=== PATIENT | male | born 1950 | race Caucasian/White ===

== ENCOUNTER 2023-03-09 06:19 | Day surgery (SDC) | payer OTHER, SELFPAY ==
[2023-03-01 08:25] VITALS: BMI 33.3
[2023-03-09] VITALS (11 sets, daily range): BP systolic 90–128; BP diastolic 44–81; PULSE 50–61; RESP 14–20; TEMP 35.9–36.8; O2SAT 94–99; BMI 33.3
--- NOTE | 2023-03-09 | DI.RAD.S_ITS ---
PROCEDURE: XR HIP W PEL IF DONE RT 2V INDICATIONS: RT ANTERIOR HIP TECHNIQUE: 2 intraoperative low resolution fluoroscopic spot films were obtained COMPARISON: None. FINDINGS: Low resolution spot films show sequential placement a right hip arthroplasty in appropriate position. IMPRESSION: Fluoroscopic guidance Approved by: Jerry Arguello M.D. on 03/09/2023 at 10:33
--- NOTE | 2023-03-09 06:00 | DI.RAD.S_ITS ---
PROCEDURE: XR HIP W PEL IF DONE RT 2V INDICATIONS: HERO TECHNIQUE: AP pelvis and lateral view of the right hip acquired. COMPARISON: [facility], [place], XR HIP W PEL IF DONE RT 2V, 03/09/2023, 9:09. FINDINGS: Bones: Patient is status post right hip arthroplasty, with hardware components in expected positions. The hip joint appears congruent. The visualized bony structures appear intact. Soft tissues: Overlying postoperative changes are noted. No suspicious soft tissue densities. IMPRESSION: Expected postoperative appearance of right total hip arthroplasty. Dictated by: Milan Post M.D. on 03/09/2023 at 12:16 Approved by: Milan Post M.D. on 03/09/2023 at 12:17
[2023-03-09] MEDS: ACETAMINOPHEN 325 MG TABLET 975 MG PO (06:50)
[2023-03-09] MEDS: MELOXICAM 7.5 MG TABLET PO (06:50)
[2023-03-09] MEDS: LACTATED RINGERS 1,000 ML 42 ML IV ×3 (06:50→11:06)
--- NOTE | 2023-03-09 07:35 | PM.PREOP ---
Pre-operative Note Interval Note History & Physical reviewed/Exam performed by Physician: Yes Changes to H&P: No
[2023-03-09] MEDS: CEFAZOLIN 2 GM/100 ML PREMIX 100 ML IV ×2 (08:05→16:48)
[2023-03-09] MEDS: TRANEXAMIC ACID 1,000 MG VIAL 1000 MG INJ ×2 (08:10→10:45)
--- NOTE | 2023-03-09 08:44 | SUR.OPER ---
Supine on padded [place] table with bilateral legs secured in padded positioning boots and suspended in positioning spars, operative leg in traction per surgeon. Head on one pillow. Both arms on padded arm rests @ < 90deg. Padded perineal post in place per surgeon.
[2023-03-09] MEDS: ROPIVACAINE/EPI/CLONIDINE/KET 50 ML SYRINGE INJ (08:55)
[2023-03-09] MEDS: SODIUM CHLORIDE IRRIG SOLUTION 250 ML, POVIDONE-IODINE SPONGE STICKS 1 APPLIC IRR (10:26)
--- NOTE | 2023-03-09 10:57 | PM.OP.1 ---
Operative Date/Time/Diagnoses Date of procedure: 03/09/23 Time of procedure: 08:45 Pre-op diagnosis: Right hip arthritis Post-op diagnosis: same Procedure & Clinicians Procedure: Right total hip arthroplasty Same procedure as scheduled: Yes Surgeon: Jerry Zamora Belling Machine Operator: Sadia Rae Anesthesia Type: General and Local Operative Notes Prosthetic devices, grafts, tissues, transplants, or devices: Implants: DePuy few Crawford 58 mm acetabular cup with 3 screws, 9 high offset Actis stem with 36 mm +5 ceramic head Estimated blood loss: 300 mL Intraoperative fluids: 2 L Procedure in detail: This 72-year-old male had significant activity limiting symptoms secondary to right hip arthritis. He was seen in clinic and treatment options were discussed at length. He elected to proceed with operative intervention. Risks and benefits were discussed in detail and informed consent was obtained. He was met in the preoperative holding area the day of surgery and the operative site was marked. Risks and benefits were again discussed with him his and the procedure was described in detail. He wished to proceed. He was taken back to the operating room and general anesthesia was induced as he had only been off of his blood thinners for approximately 48 hours. He was prepped and draped in the usual sterile fashion. A time-out procedure was performed. The correct operative site, patient, and procedure were identified. The patient's allergies and medical comorbidities were discussed. TXA and Ancef were administered. Are operating room staff included Sadia Rae, physician surgical dental assistant. Her assistance was necessary for room set up, soft tissue retraction, wound closure. Surgery would have required significantly more time had she not been available to assist. We began with a standard anterior approach to the hip. The TFL and rectus were dissected and the lateral circumflex vessels were coagulated. Cobra retractors were placed on the superior and inferior femoral neck. A capsulotomy was performed and the reflected head of rectus was taken down. Take stitches were placed in a soft tissue protector was placed in the wound. A 15 mm neck cut had been templated and this was measured and the neck was cut at that length. A napkin ring cut was used and this was removed as well as the head. Retractors were then placed in the acetabulum along the anterior wall, posterior wall, and inferiorly. The labrum was sharply resected. The pulvinar was resected with Bovie electrocautery. I reamed up to a 57 mm Reamer and felt that I had good fit at that size. I placed a cup but did not achieve satisfactory stability. I therefore reamed up to a 58 mm and deepened this. With this line to line reaming, I was able to get the cup in a position where it had better traction against the acetabulum. Fluoroscopically it was not in a satisfactory position so I utilized a cupped weaker to place him into a correct position. I placed 3 screws and checked them fluoroscopically. I found that 1 was excessively long so I downsized that by 5 mm. After verifying correct screw placement fluoroscopically I placed a 36 mm liner. I then moved to the femur. I began by performing a lateral capsular release with the hip in neutral extension. The hip was then extended and I found that a conjoined tendon release was necessary to achieve satisfactory femoral mobility to allow for broaching. He had been templated for a size 7 broach but I was able to broach up to a size 9. Fluoroscopically a size 9 broach with a standard offset stem and a +5 head was long but had inadequate offset. The femoral stem sizing was appropriate on an AP hip fluoroscopic image. I therefore placed a size 9 high offset intending to increase our offset. I placed a ceramic + 1.5 mm head and impacted that onto the trunnion. After reduction of those components I unfortunately found that we had shortened more than I desired and the hip was unstable with a 45 degree drop test. I therefore removed the ceramic +1.5 mm head and trialed using a +5 mm head. This appeared to have more appropriate length and was stable with a 45 degree drop test. I therefore placed a new +5 mm 36 mm head onto a clean dry trunnion. This was again stable with a 45 degree drop test. The wound was copiously irrigated with Betadine followed by a soft tissue lavage. A local anesthetic mixture of ropivacaine epinephrine clonidine and Toradol was placed throughout the wound. The wound was closed using a combination of Vicryl, Stratafix, and Monocryl. Dermabond was applied and a soft dressing was applied. Post-operative Plan for aftercare: Weightbearing as tolerated Postoperative films to be obtained in PACU Mobilize with physical therapy Anticipate discharge home Pradaxa DVT prophylaxis and his normal dose should begin on Monday morning Follow-up with our clinic at 2 weeks postoperatively for wound check
[2023-03-09] MEDS: LACTATED RINGERS 1,000 ML 100 ML IV (11:35)
[2023-03-09] MEDS: HYDROCODONE/ACET 5/325 TABLET 1 TAB PO (14:14)
--- NOTE | 2023-03-09 15:44 | PT.IIE ---
Current Diagnoses Unilateral primary osteoarthritis, right hip (03/09/23) Surgery Performed Operation Date: 03/09/23 07:45 Actual Procedures p Total Hip Arthroplasty/Anterior Approach(Right) - Jerry Zamora MD Surgical History (Last Updated 03/01/23 @ 09:22 by Tova Calero RN) H/O right wrist surgery H/O transurethral resection of prostate H/O vasectomy (~1978) Hx of arthroscopy of left knee Hx of bilateral cataract extraction Hx of eye surgery Hx of tonsillectomy Medical History (Last Updated 03/01/23 @ 09:30 by Tova Calero RN) Alcoholism in recovery (1972) Atrial fibrillation (07/10/20) Wylie's esophagus without dysplasia BPH (benign prostatic hyperplasia) Diabetes GERD (gastroesophageal reflux disease) Glaucoma History of colon polyps History of COVID-19 (~01/23/23) HLD (hyperlipidemia) HTN (hypertension) Leukocytosis Osteoarthritis Pacemaker (03/03/22) PVC's (premature ventricular contractions) Skin cancer Tachy-bertin syndrome Physical Therapy Inpatient Evaluation/Re-Eval M1 PT/OT-IP Prior Functional Status Start: 03/09/23 15:51 Freq: NEEDED Status: Active Protocol: Document 03/09/23 15:51 AB (Rec: 03/09/23 16:16 AB [id number]) Medical Review Prior Functional Status Medical History Reviewed Yes Communication Pt able to communicate all needs. Mobility and Gait IND with all Activities of Daily Living and IADL's IND with ADLs and IADLs Social History Household Members spouse Living Arrangements House Number of Floors (Floors) Two Floors Number of Stairs To Enter/Railing? no JOHN Home Environment Standard Height Toilet,Tub/ Shower Home Equipment Front Wheel Walker,Straight Cane,Raised Toilet Seat Without Armrests,Tub Transfer Bench,Hand Held Shower,Long Handled Shoe Horn,Station Mechanic Helper,Grab Bars In Shower Additional Social History Comment Pt's spouse can assist 19/12 as needed. Pt lives in split level home with 14 steps to bedroom on second floor (7 steps, landing, 7 steps; left hand rail). However, can stay of main level if needed. M2 PT-IP Current Condition Start: 03/09/23 15:51 Freq: NEEDED Status: Active Protocol: Document 03/09/23 15:51 AB (Rec: 03/09/23 16:16 AB [id number]) Physical Therapy Current Condition Current Condition Evaluation Date 03/09/23 Treatment Diagnosis s/p R anterior HERO Onset Date 03/09/23 M3 PT-IP Subjective Start: 03/09/23 15:51 Freq: NEEDED Status: Active Protocol: Document 03/09/23 15:51 AB (Rec: 03/09/23 16:16 AB [id number]) Subjective Physical Therapy Visit Type Type Initial Evaluation Visit Start Time 15:00 Visit Stop Time 15:44 Total Visit Minutes 44 Physical Therapy Visit Comments Patient Comments Pt reports he does not have any pain and is agreeable to PT evaluation. Therapy Pain Assessment Pain When Pain Assessed During Mobility Pain Present Pain Present Denied Pain M4 PT-IP Mobility and Gait Start: 03/09/23 15:51 Freq: NEEDED Status: Active Protocol: Document 03/09/23 15:51 AB (Rec: 03/09/23 16:16 AB [id number]) PT-Bed Mobility Assessment Rolling Type of Rolling Bilateral Level of Assist Independent Supine to Sit Supine to Sit Independent Sit to Supine Sit to Supine Independent Scooting Scooting to Edge of Bed Independent PT-Transfer Assessment Sit to and From Stand Sit to and from Stand Standby Assistance,Use of Upper Extremities Equipment Transfer Assistive Device Gait Belt,Front Wheeled Walker Transfers Transfer Destination Bed Transfer Technique Stand Step Pivot Transfer Ability Level of Assist Standby Assistance,Use of Upper Extremities Comments Mobility Comments Pt desaturates to below 88% on RA while at rest and conversing with PT, therefore RN recommended pt stay on 2L of O2, especially with mobility. Pt's BP in supine is 104/61 mmHg. The pt was able to perform bed mobility with independence. Once sitting at EOB, the pt's BP improved to 116/65 and pt denies any symptoms. Pt is able to perform STS with FWW and SBA, however BP dropped to 100/75. The pt denied symptoms of lightheadedness and was able to remain standing for a few minutes to retake BP in standing, which improved to 107/65. The pt then ambulated and completed stairs as below. Upon returning to room, the pt required verbal cues for safety to sit in bed, but was able to perform bed mobility with independence. At end of session all needs were met, call light was placed within reach, bed alarm was set and is at bedside. Gait Assessment Gait Gait Assistance Required: Standby Assistance Distance (Feet) 200 Assistive Devices Assistive Device Gait Belt,Front Wheeled Walker Orthotic/Prosthetic Devices or Brace: No Gait Deviations General Gait Pattern Decreased Stride Length, Decreased Feet Clearance Factors Limiting Gait Function Factors Limiting Gait Function Decreased Strength,Limited Range of Motion Comments Gait Comments Gait deviations are consistent with surgical procedure. No imbalance or instability noted while ambulating, and pt demonstrated proper use of FWW and good safety awareness while ambulating. Stair Climbing Assessment Evaluation Level of Assist On Stairs Standby Assistance Devices Stair Climbing Assistive Devices Left Railing,Right Railing Technique/Endurance Stair Climbing Direction Ascend and Descend Stair Climbing Technique Step Over Step,Step to Step Number of Steps Climbed 15 Query Text: Stair Climbing Set # Repetitions (reps) 1 Comments Stair Climbing Comments Pt was able to ascend/descend 15 steps with bilateral hand rails and SBA and without rest break needed. He demonstrated both step to step technique and reciprocal pattern. No instability or LOB noted, though pt reports feeling weaker on RLE compared to LLE. PT-Balance Assessment Sitting Balance and Reactions Static Sitting Balance Ability Normal Dynamic Sitting Balance Ability Normal Standing Balance and Reactions Static Standing Balance Ability Normal Dynamic Standing Balance Ability Good Device Used FWW M5 PT-IP Objective Assessments Start: 03/09/23 15:51 Freq: NEEDED Status: Active Protocol: Document 03/09/23 15:51 AB (Rec: 03/09/23 16:16 AB [id number]) Orientation Orientation/Cognition Level of Alertness Alert Orientation Name,Age,Birthday,Month,Date, Year,Day of Week,Place, Situation Language Function Ability No Deficits Noted Safety Awareness Understands Safety Issues Memory Description No Deficits Noted Gross Range of Motion Upper Extremity ROM Assessment Within Functional Limits Lower Extremity ROM Assessment Right Impaired Strength Upper Extremity Strength Assessment Within Functional Limits Lower Extremity Strength Assessment Right Impaired M6 PT-IP Treatment Start: 03/09/23 15:51 Freq: NEEDED Status: Active Protocol: Document 03/09/23 15:51 AB (Rec: 03/09/23 16:16 AB [id number]) Physical Therapy Treatment Education Education Provided Precautions,Weight Bearing Status,Post-Op Packet,Safety Brace Education Patient,Caregiver M7 PT-IP Assessment and Plan Start: 03/09/23 15:51 Freq: NEEDED Status: Active Protocol: Document 03/09/23 15:51 AB (Rec: 03/09/23 16:16 AB [id number]) PT Summary Assessment and Plan Potential Rehabilitation Potential Excellent Status of Condition at Evaluation Stable Summary Impairments Pain,ROM,Strength,Balance,Bed Mobility,Transfers,Gait, Activity Tolerance Assessment Summary Tres Santiago is a 72 year old male patient who is s/p right anterior HERO performed on 05/20. The pt has deficits consistent with this surgical procedure including weakness, ROM deficits, and gait deviations. Currently, the pt is independent with bed mobility but requires SBA for STS, transfers ambulation and stairs. He is able to ambulate 200ft with FWW and ascend/ descend 15 steps with bilateral hand rails. Based on his current level of function , the pt demonstrates he is safe to discharge to home with assistance. Outpatient PT is highly recommended to improve his post operative outcomes. Goals Bed Mobility Goal Independent Transfer Goal Independent Gait Goal Independent Gait Distance 300 Other Goals Pt to be able to transfer with LRAD or without AD independently to show improved ability to perform functional mobility. Pt to ambulate 500ft with LRAD or without AD independently in order to ambulate community distances. Days to Meet Goals 5 Frequency of Treatment Frequency Of Treatment Twice a Day Treatment Plan Physical Therapy Treatment Plan Bed Mobility Training,Transfer Training,Gait Training, Therapeutic Exercise,Balance Retraining,Post Op Education, Discharge Planning,Hot or Cold Pack,Neuromuscular Re-ed, Coordination Retraining,Manual Therapy Other Recommendations and Next Treatment Continue gait and stair Focus training as needed. Possibly progress to SPC if indicated. Precautions Anterior Hip Precautions No Hip Extension,No Hip External Rotation Weight Bearing Status Weight Bearing Status Weight Bear as Tolerated Recommendations To Nursing Amount of Assist Needed Standby Assistance Discharge Recommendations PT Discharge Recommendations Home with Assistance, Outpatient PT Transportation Needs at Discharge Private Vehicle
--- NOTE | 2023-03-09 17:58 | PC.NURSE ---
Pt arrived from PACU A/O IVF infusing as per MD orders Left hip aquacell dsg CDI Amb w/ PT earlier Satisfactory post op course. Call light w/in reach, bed alarm on for pt safety. Continue w/plan of care.
--- NOTE | 2023-03-09 19:41 | PC.NURSE ---
Patient discharged at 19:41 transferred to car by wheelchair. Spouse present. Admission orders reviewed with patient.
== END 2023-03-09 19:41 | disposition home or self-care (01) ==
LOC: OR 06:25 → AC 09:48
PROVIDERS: PCP Student in an Organized Health Care Education/Training Program; Referring Provider Student in an Organized Health Care Education/Training Program; Visit Provider Orthopaedic Surgery Adult Reconstructive Orthopaedic Surgery
PROC: (CPT 27130; principal; 2023-03-09 07:45)
DX: M16.11 Unilateral primary osteoarthritis, right hip (principal)
CPT/HCPCS: 27130; 73502; 76000; 97161; 97535; C1776; J0690; J1100; J1170; J2405; J2704; J3010

== ENCOUNTER 2023-10-11 07:18 | Day surgery (SDC) | payer OTHER, SELFPAY ==
[2023-03-09 12:09] VITALS: BMI 33.3
[2023-10-04 12:44] VITALS: BMI 34.2
[2023-10-11] VITALS (12 sets, daily range): BP systolic 98–146; BP diastolic 33–80; PULSE 47–57; RESP 11–18; TEMP 36–36.8; O2SAT 95–99; BMI 31.4
--- NOTE | 2023-10-11 | DI.RAD.S_ITS ---
PROCEDURE: [id number] W PEL IF PERFORMED INDICATIONS: left anterior hip TECHNIQUE: 6 intraoperative fluoroscopic spot films COMPARISON: [facility], [place], XR HIP W PEL IF DONE RT 2V, 03/09/2023, 11:16. FINDINGS: Six intraoperative fluoroscopic spot films show sequential placement of total left hip prosthesis IMPRESSION: Approved by: Jerry Arguello M.D. on 10/11/2023 at 18:31
--- NOTE | 2023-10-11 06:00 | DI.RAD.S_ITS ---
PROCEDURE: XR HIP W PEL IF DONE LT 2V INDICATIONS: HERO TECHNIQUE: AP pelvis and lateral view of the hip acquired. COMPARISON: [facility], [place], XR HIP W PEL IF DONE RT 2V, 03/09/2023, 11:16. FINDINGS: Bones: Patient is status post bilateral hip arthroplasty, with hardware components in expected positions. The hip joint appears congruent. The visualized bony structures appear intact. Soft tissues: Overlying postoperative changes are noted. No suspicious soft tissue densities. IMPRESSION: Expected post-operative appearance of a hip arthroplasty. Dictated by: Isaias Catalan M.D. on 10/11/2023 at 12:11 Approved by: Isaias Catalan M.D. on 10/11/2023 at 12:11
[2023-10-11] MEDS: LACTATED RINGERS 1,000 ML 42 ML IV ×3 (08:06→11:04)
[2023-10-11] MEDS: MELOXICAM 7.5 MG TABLET PO (08:09)
[2023-10-11] MEDS: ACETAMINOPHEN 325 MG TABLET 975 MG PO (08:09)
--- NOTE | 2023-10-11 08:38 | PM.PREOP ---
Pre-operative Note Interval Note History & Physical reviewed/Exam performed by Physician: Yes Changes to H&P: No
[2023-10-11] MEDS: TRANEXAMIC ACID 1,000 MG VIAL 1000 MG INJ (09:00)
[2023-10-11] MEDS: CEFAZOLIN 2 GM/100 ML PREMIX 100 ML IV ×2 (09:00→17:17)
--- NOTE | 2023-10-11 09:34 | SUR.OPER ---
Supine on padded [place] table with bilateral legs secured in padded positioning boots and suspended in positioning spars, operative leg in traction per surgeon. Head on one pillow. BILATERAL ARMS secured on FOAM padded armboard <90 degrees abduction. Padded perineal post in place per surgeon. CONFIRMED BY DR. CREWS.
[2023-10-11] MEDS: THROMBIN (RECOMBINANT) 5,000 UNIT VIAL 5000 UNIT TOP (09:48)
--- NOTE | 2023-10-11 11:00 | P.OP_ITS ---
Operative Date/Time/Diagnoses Date of procedure: 10/11/23 Pre-op diagnosis: Left hip osteoarthritis Post-op diagnosis: same Procedure & Clinicians Procedure: Left total hip arthroplasty Same procedure as scheduled: Yes Surgeon: Jerry Zamora Dyeing Machine Back Tender: Estela Hernandez Anesthesia Type: General, Spinal and Local Operative Notes Estimated Blood Loss (mL): 1,000 Procedure in detail: Left Uncemented Direct Anterior Total Hip Arthroplasty: Implants: Left Depuy Total Hip Arthroplasty: * Depuy Bryan Gription size 62 cup? * Depuy Actis femoral stem size 9 high offset? * 36 mm +5 ceramic femoral head? Procedure Summary: This 73-year-old male patient had previously undergone a right total hip arthroplasty by myself. He returned reporting that he would recovered well from that side but was limited by pain in his left hip which had similar degeneration. I repeated labs prior to scheduling him for a left total hip arthroplasty and found that his diabetes control had worsened between the procedures so it was delayed until his hemoglobin A1c could be improved which he was eventually able to do. Intraoperatively I did encounter significantly more blood loss than the typical total hip. While dissecting his medial capsule working down towards the lesser trochanter using a Sandhu, I noted brisk bleeding from the posterior aspect of the proximal femur. I was unable to identify the area of the bleeding because it was obscured by the femoral neck so I placed thrombin and a lap in the area of the bleeding to attempt to gain hemostasis and then made my femoral neck cut. After removing the femoral neck and head I was able to find the source of the bleeding, which was inferior to the acetabulum likely in the area of the obturator artery. I brought up a werewolf bipolar electrocautery device and was able at that point in time to control the bleeding. At that point in the case the suction canister indicated that there was 850 mL of fluid in the canister and no irrigation had been utilized so this was likely an accurate estimate of blood loss at that point in the case. There was minimal bleeding the remainder of the case once hemostasis was achieved in that area. My initial reaming appeared on fluoroscopy to have a slightly lower hip center than the contralateral side so I attempted to utilize a +1.5 head where as I had used a +5 head on the other side. I had good stability with maximum external rotation with a +1.5 head trial however the hip did dislocate with a 45 degree drop test so I upsized to a +5 head to match the other side which resolved the instability. While utilizing a long metal bar to control for fluoroscopic distortion across the trans ischial line, the leg lengths were grossly equal. These implants were then placed. Procedure in Detail: This patient was seen preoperatively and evaluated for hip pain which was refractory to numerous nonoperative treatment modalities. Their hip pain correlated with radiographic changes demonstrating significant degeneration in the hip joint. The risks and benefits of continued nonoperative management versus operative management were discussed at length and all of the patient?s questions were answered. Additional educational materials providing further details beyond our discussion in clinic were provided via a publicly available patient education video which included the incidence of medical complications associated with total hip arthroplasty, reasons for revision following total hip arthroplasty, and patient satisfaction rates following total hip arthroplasty. That video can be accessed at [email or web address] . With this understanding of the risks inherent to the procedure, the patient elected to move forward with operative management. Following preoperative optimization, the patient was scheduled for surgery. The patient was met in the preoperative holding area the day of the procedure and all questions were answered. The patient?s nares were swabbed with betadine in order to decolonize them from MRSA. Informed consent was signed and the operative limb was marked with indelible ink.? The patient was brought back to the operating room where anesthesia was induced. The patient was transferred to the Morenci table and all bony prominences were padded. The operative site was prepped and draped in the usual sterile fashion. Prior to incision, tranexamic acid and cefazolin were administered. Operative templating images were displayed demonstrating the anticipated implant sizes and correct operative extremity. A timeout procedure was performed verifying the patient?s identity, medical comorbidities, allergies, relevant medications, anesthesia type and the surgical plan. All present were in agreement. The assistance of a physician aquatics assistant department head was required for positioning, room setup, soft tissue retraction and wound closure. Without this assistance, the procedure would have been significantly more challenging and time consuming.?? A direct anterior approach to the hip was utilized. This was performed with a longitudinal incision through a Heuter interval. The incision was planned 2 cm distal and 2 cm lateral to the ASIS extending towards the lateral patella, in line with the muscle body of the TFL. Following incision, the subcutaneous tissue was dissected while taking care to avoid injury to the lateral femoral cutaneous nerve. The fascia overlying the TFL was identified by dissecting off the overlying fat and identifying perforating vessels to the TFL. The TFL fascia was incised and dissected away from the medial border of the TFL. A cobra retractor was placed over the superior femoral neck between the abductors and the hip capsule and used to reflect the TFL laterally. A [place] self-retainer was then placed in the distal aspect of the wound between the TFL and the rectus femoris. This was tensioned to open up the direct anterior interval and the lateral circumflex vessels were identified and coagulated using electrocautery. The floor of the TFL fascia was incised, exposing the pericapsular fat overlying the hip capsule. A second cobra retractor was placed on the inferior femoral neck. A double-bent soft tissue retractor was placed on the anterior wall of the acetabulum and used to tension the reflected head of rectus femoris, which was then released in order to limit soft tissue tension. A capsulotomy was made in the midline of the anterior hip capsule in line with the femoral neck ending at the vastus tubercle. The double-bent retractor was removed in order to limit the amount of time that a soft tissue retractor remained on the anterior wall and protect the femoral nerve. Tag stitches were placed in the superior and inferior leaflets of the hip capsule. An Ernie soft tissue retractor was introduced over the tag stitches and tensioned in the interval between the rectus femoris and the TFL in order to retract and protect those muscles. The cobra retractors were replaced intracapsularly, with one over the superior neck in the pocket created by the base of the greater trochanter and the other on the femoral head. The capsulotomy was extended laterally to the base of the greater trochanter and medially to the lesser trochanter. This required externally rotating the hip. Once the lesser trochanter had been identified, a neck cut was planned according to measurements from preoperative templating. A ruler was cut at the length measured between the superior aspect of the lesser trochanter and the collar of the prosthesis. This line was extended towards the inferior aspect of the lateral cobra retractor to plan a cut which would leave minimal residual femoral neck laterally. The neck was cut at 60 degrees of external rotation along that line. A second cut was performed to remove a large napkin ring and facilitate head extraction. The napkin ring cut and femoral head were removed.?? A broad anterior wall retractor was placed between the labrum and the anterior capsule so that the anterior capsule would prevent capturing and pinching the femoral nerve anteriorly. An additional retractor was placed on the posterior wall. External rotation and traction were applied through the Morenci table so that the cut surface of the femoral neck would not restrict access to the acetabulum. The labrum was excised sharply and the pulvinar was excised with electrocautery to limit bleeding from branches of the obturator artery. Acetabular reamers were selected based on preoperative templating and measurements of the excised femoral head. These were introduced into the acetabulum. Fluoroscopy was utilized to replicate a standing AP pelvis radiograph by centering over the pelvis, rotating until there was appropriate symmetry between the obturator foramen, and introducing caudal tilt to match the position of the pubic symphysis relative to the sacrococcygeal junction according to the patient?s anatomy. Fluoroscopy was utilized to ensure appropriate reaming depth. Once satisfied with the reaming depth corresponding to the preoperative template and the pinch fit between the columns, an appropriate sized acetabular cup was selected which would provide 1 mm of press-fit. This cup was introduced and manipulated until appropriate abduction and anteversion angles were obtained with careful attention to appropriate abduction and anteversion angles as evaluated by the position of the cup relative to the anterior and posterior lopez of the acetabulum and the AP fluoroscopy which recreated the patient?s standing radiograph. The cup was impacted into place. Two screws were placed to provide additional fixation. Peripheral osteophytes were removed. The acetabular liner was then placed with care to ensure locking of the locking mechanism.? Attention was then turned to the femur. All retractors were removed, traction was released, a retractor was placed in the interval between the hip capsule and the gluteus minimus, and the hip was externally rotated to 90 degrees. Traction was applied through the Morenci table to tension the lateral capsule and this was released using electrocautery. Traction was released and a Morenci hook was placed posteriorly around the proximal femur at the level of the vastus ridge. The table height was lowered in order to restrict the tension on the anterior structures during hip hyperextension to limit the risk of femoral nerve palsy. With traction off and the hip at 90 degrees of external rotation, the hip was hyperextended and adducted while manually elevating the femur away from the acetabulum with the Morenci hook to ensure it would not be caught behind the greater trochanter. An asymmetric retractor was placed over the calcar and a broad double-pronged retractor was placed over the greater trochanter. The tag stitch capturing the lateral leaflet of the capsule was moved to the medial side, leaving the conjoined and piriformis tendons isolated in the face of the greater trochanter. The hip was externally rotated and elevated. A release of the conjoined tendon was necessary in order to obtain adequate exposure for broaching. The canal was opened with an opening broach and a rasp was used to remove cancellous bone. A rongeur was used to remove the residual lateral bone at the base of the greater trochanter to avoid placing the stem in varus. The femur was then broached to the appropriate sized stem yielding good rotational fit and fill of the canal as well as appropriate version of the stem trial. Neck and head trials were placed, all retractors were removed and the hip was returned to neutral abduction and extension. I then reduced the hip. I initially reduced the hip with a +1.5 head but noted instability with a 45 degree drop test so I upsized to a +5 head. An AP pelvis fluoroscopic image matching the preoperative standing radiograph was obtained with both lesser trochanters visible and both hips in 40 degrees of external rotation. This dem onstrated appropriate leg length and offset. An AP hip fluoroscopic image was obtained with the hip in neutral rotation which demonstrated good canal fill. Hip stability was evaluated with maximum external rotation and a 45 degree drop test which demonstrated no instability. The hip was dislocated and I returned to the broaching position. The definitive stem was placed and the trunnion was cleaned and dried. I placed a ceramic head onto the trunnion and impacted it into place on the Ramirez taper.?? All retractors were removed and the hip was reduced. A dilute mixture of betadine and peroxide was used to bathe the soft tissues during final fluoroscopic assessment. Appropriate component positioning was confirmed on an AP pelvis radiograph with the operative and nonoperative legs in 40 degrees of external rotation, evaluating leg length and offset. Appropriate stem fill was evaluated on an AP hip radiograph with the operative leg in neutral rotation. No fractures were identified on these radiographs. Stability was satisfactory with a 90 degree external rotation test as well as a 45 degree drop test. The hip was copiously irrigated with pulse lavage. The capsule was closed with absorbable interrupted suture. The TFL fascia was closed with barbed suture while carefully protecting the lateral femoral cutaneous nerve from entrapment. A mixture of Ropivacaine, Epinephrine, Clonidine and Toradol was infiltrated throughout the soft tissues. The skin was closed with 2-0 and 3-0 sutures. Surgical glue was applied and a soft dressing was placed.??The sponge, instrument and needle counts were reported as being correct at the end of the case.??No obvious complications occurred. The patient was transferred from the Morenci table back to a stretcher. The patient emerged from anesthesia without difficulty and was taken to the PACU in a stable condition.? Plan for aftercare: * Anterior hip precautions * Weightbearing as tolerated * Given the high blood loss of the procedure, we will administer albumin. I will get a CBC in the PACU. We will have the patient typed and screened. * Pradaxa for DVT prophylaxis to begin on postoperative day 2 * Multimodal pain regimen with no IV opioids ordered * I had initially planned to discharge the patient today however given his high blood loss, if he experiences orthostatic hypotension we may keep him overnight for monitoring * Follow up at [facility] in 2 weeks * Detailed postoperative instructions available at [email or web address]
[2023-10-11 11:46] LABS: Hematocrit 37.2 % (41-53); Hemoglobin 12.8 g/dL (13.5-17.5)
[2023-10-11] MEDS: ACETAMINOPHEN 325 MG TABLET 650 MG PO (13:35)
--- NOTE | 2023-10-11 15:40 | PT.IIE ---
Current Diagnoses Unilateral primary osteoarthritis, left hip (10/11/23) Surgery Performed Operation Date: 10/11/23 08:45 Actual Procedures p LEFT Total Hip Arthroplasty/Anterior Approach(Left) - Jerry Zamora MD Surgical History (Last Updated 10/04/23 @ 13:02 by Tova Calero, RN) H/O right wrist surgery H/O transurethral resection of prostate H/O vasectomy (~1978) 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) Hx of arthroscopy of left knee Hx of bilateral cataract extraction Hx of eye surgery Hx of tonsillectomy Medical History (Last Updated 03/01/23 @ 09:30 by Tova Calero RN) Alcoholism in recovery (1972) Atrial fibrillation (07/10/20) Wylie's esophagus without dysplasia BPH (benign prostatic hyperplasia) Diabetes GERD (gastroesophageal reflux disease) Glaucoma History of colon polyps History of COVID-19 (~01/23/23) HLD (hyperlipidemia) HTN (hypertension) Leukocytosis Osteoarthritis Pacemaker (03/03/22) PVC's (premature ventricular contractions) Skin cancer Tachy-bertin syndrome Physical Therapy Inpatient Evaluation/Re-Eval M1 PT/OT-IP Prior Functional Status Start: 10/11/23 17:31 Freq: NEEDED Status: Active Protocol: Document 10/11/23 15:40 AB (Rec: 10/11/23 17:49 AB [id number]) Medical Review Prior Functional Status Medical History Reviewed Yes Communication able to make needs known Mobility and Gait pt stated that he was indpendent with all mobilities and ambulation without AD Social History Household Members spouse Living Arrangements House Number of Floors (Floors) Two Floors Number of Stairs To Enter/Railing? pt lives on a split level house: 7 + landing + 7 steps L rail ascending to get to bedroom level no steps to enter the house Home Environment Standard Height Toilet,Tub/ Shower Home Equipment Front Wheel Walker,Straight Cane,Raised Toilet Seat Without Armrests,Tub Transfer Bench,Hand Held Shower,Grab Bars In Shower Additional Social History Comment pt may stay on main level of the house if needed but only a recliner to sleep on that level M2 PT-IP Current Condition Start: 10/11/23 17:31 Freq: NEEDED Status: Active Protocol: Document 10/11/23 15:40 AB (Rec: 05/15/24 17:49 AB [id number]) Physical Therapy Current Condition Current Condition Evaluation Date 10/11/23 Treatment Diagnosis s/p L HERO anterior; difficulty in walking Onset Date 10/11/23 M3 PT-IP Subjective Start: 10/11/23 17:31 Freq: NEEDED Status: Active Protocol: Document 10/11/23 15:40 AB (Rec: 10/11/23 17:49 AB [id number]) Subjective Physical Therapy Visit Type Type Initial Evaluation Visit Start Time 15:40 Visit Stop Time 17:05 Number of STEAM BLOCKER Visits 0 Physical Therapy Visit Comments Patient Comments agreeable to do PT; pt wants to go home Therapy Pain Assessment Pain When Pain Assessed At Rest Pain Present Pain Present Pain Reported Location Left Hip Intensity 3 Scale Used Numeric (0 - 10) Pain Behaviors Guarding,Holding Area Pain Management Techniques Apply Cold,Distraction, Elevation,Modification of Treatment,Re-positioning, Timing of Activity with Medications M4 PT-IP Mobility and Gait Start: 10/11/23 17:31 Freq: NEEDED Status: Active Protocol: Document 10/11/23 15:40 AB (Rec: 10/11/23 17:49 [id number]) PT-Bed Mobility Assessment Supine to Sit Supine to Sit Standby Assistance PT-Transfer Assessment Sit to and From Stand Sit to and from Stand Contact Guard Assistance,1 Person Assistance,Use of Upper Extremities Equipment Transfer Assistive Device Gait Belt,Front Wheeled Walker Orthotic/Prosthetic Devices or Brace: No Transfers Transfer Destination Chair Transfer Technique ambulated Transfer Ability Level of Assist Contact Guard Assistance,Use of Upper Extremities Comments Mobility Comments pt supine in bed and agreeable to do PT. Spouse in room with pt. obtained PLOF and home set up from pt. post-op folder provided to pt and reviewed contents. educated pt and spouse regarding L hip anterior precautions. BP in supine: 111/54. pt completed supine to sit SBA. able to sit on EOB SBA. BP in supine: 120/39. pt was able to sit on EOB for 2 more mntues and BP checked: 112/58. pt without c/o dizziness/ lightheadedness. pt completed sit to stand from EOB CGA and cues for techniques and safety. pt ambulated to the chair using FWW CGA ~ 15 ft. BP after ambulation: 109/60. caregiver training conducted. educated spouse on how to use safety belt and how to assist pt. spouse was able to put the safety belt on pt and assisted pt with sit to stand, ambulation in the hallway using FWW CGA. educated pt and spouse regarding car transfers. stair climbing training. PT educated and demonstrated to pt and spouse on how to do stairs. durring attempt to do stair training, pt found to have uncotrolled voiding. assisted pt back to the room. pt stated that he does not feel like he has to void. assisted with brief management . assistted pt back to the stairs. pt completed up/down steps holding on to L rail with B hands CGA to min A and cues for safety. pt completed steps x 3 sets. assisted pt back to his room. pt ambulated from w/c to chair using fWW with spouse assisting CGA. positioned pt on the chair. pt and spouse without further concerns. BP at end of PT session: 109/ 60. nurse informed Gait Assessment Gait Gait Assistance Required: Contact Guard Assist Distance (Feet) 100 Able to Maintain Weight Bearing Status Yes During Gait Assistive Devices Assistive Device Gait Belt,Front Wheeled Walker Orthotic/Prosthetic Devices or Brace: No Gait Deviations General Gait Pattern Decreased Feet Clearance,Step- to Gait Factors Limiting Gait Function Factors Limiting Gait Function Decreased Activity Tolerance, Decreased Strength,Difficulty Following Directions,Limited Range of Motion,Pain,Poor Balance,Poor Safety Awareness Stair Climbing Assessment Evaluation Level of Assist On Stairs Contact Guard Assistance, Minimal Assistance Devices Stair Climbing Assistive Devices Left Railing Technique/Endurance Stair Climbing Direction Ascend and Descend Stair Climbing Technique Step to Step Number of Steps Climbed 3 Query Text: Stair Climbing Set # Repetitions (reps) 3 PT-Balance Assessment Sitting Balance and Reactions Static Sitting Balance Ability Normal Dynamic Sitting Balance Ability Normal Standing Balance and Reactions Static Standing Balance Ability Good Dynamic Standing Balance Ability Fair Device Used FWW M5 PT-IP Objective Assessments Start: 10/11/23 17:31 Freq: NEEDED Status: Active Protocol: Document 10/11/23 15:40 AB (Rec: 10/11/23 17:49 AB [id number]) Orientation Orientation/Cognition Level of Alertness Alert Orientation Name,Age,Birthday,Month,Date, Year,Day of Week,Place, Situation Language Function Ability Hard of Hearing Safety Awareness Decreased Safety Awareness Memory Description Short Term Impaired Gross Range of Motion Lower Extremity ROM Assessment Within Functional Limits Strength Lower Extremity Strength Assessment Left Impaired Hip 3-/5 Knee 4-/5 Coordination Assessment Gross Coordination Gross Coordination WNL Sensation Assessment Sensation Sensation Description Numbness Comments Sensation Comments still has numbness on his buttocks per pt Muscle Tone Muscle Tone WNL Yes M6 PT-IP Treatment Start: 10/11/23 17:31 Freq: NEEDED Status: Active Protocol: Document 10/11/23 15:40 AB (Rec: 10/11/23 17:49 AB [id number]) Physical Therapy Treatment Education Education Provided Precautions,Weight Bearing Status,Post-Op Packet,Safety M7 PT-IP Assessment and Plan Start: 10/11/23 17:31 Freq: NEEDED Status: Active Protocol: Document 10/11/23 15:40 AB (Rec: 10/11/23 17:49 AB [id number]) PT Summary Assessment and Plan Potential Rehabilitation Potential Good Status of Condition at Evaluation Stable Summary Impairments Pain,ROM,Strength,Balance, Coordination,Sensation,Tone, Cognition,Bed Mobility, Transfers,Gait,Activity Tolerance Assessment Summary pt is a 73 y/o M s/p L HERO anterior approach POD 0. pt has L hip anterior precautions and is WBAT. pt requiring CGA with mobility using FWW. caregiver training conducted and spouse was able to assist pt safely with mobility. pt plans to go home with spouse to assist and has outpt PT set up. pt may go home when medically stable. Goals Bed Mobility Goal Independent Transfer Goal Independent,Front Wheeled Walker Gait Goal Independent,Front Wheel Walker Gait Distance 300 Other Goals up/down 15 steps L rail ascending mod I Days to Meet Goals 5 Frequency of Treatment Frequency Of Treatment Twice a Day Treatment Plan Physical Therapy Treatment Plan Bed Mobility Training,Transfer Training,Gait Training, Therapeutic Exercise,Balance Retraining,Post Op Education, Discharge Planning,Hot or Cold Pack,Neuromuscular Re-ed, Coordination Retraining,Manual Therapy Precautions Anterior Hip Precautions No Hip Extension,No Hip External Rotation Weight Bearing Status Weight Bearing Status Weight Bear as Tolerated Allowed Weight Bearing Amount (enter % LLE WBAT or #) (%) Recommendations To Nursing Amount of Assist Needed 1 Person Assist Discharge Recommendations PT Discharge Recommendations Home with Assistance, Outpatient PT Transportation Needs at Discharge Private Vehicle
[2023-10-11] MEDS: IBUPROFEN 600 MG TABLET PO (17:17)
--- NOTE | 2023-10-11 17:20 | OT.IP.EVAL ---
Current Diagnoses Unilateral primary osteoarthritis, left hip (10/11/23) Surgery Performed Operation Date: 10/11/23 08:45 Actual Procedures p LEFT Total Hip Arthroplasty/Anterior Approach(Left) - Jerry Zamora MD Past Medical History (Last Updated 03/01/23 @ 09:30 by Tova Calero, RN) Alcoholism in recovery (1972) Atrial fibrillation (07/10/20) Wylie's esophagus without dysplasia BPH (benign prostatic hyperplasia) Diabetes GERD (gastroesophageal reflux disease) Glaucoma History of colon polyps History of COVID-19 (~01/23/23) HLD (hyperlipidemia) HTN (hypertension) Leukocytosis Osteoarthritis Pacemaker (03/03/22) PVC's (premature ventricular contractions) Skin cancer Tachy-bertin syndrome Surgical History (Last Updated 10/04/23 @ 13:02 by Tova Calero RN) H/O right wrist surgery H/O transurethral resection of prostate H/O vasectomy (~1978) 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) Hx of arthroscopy of left knee Hx of bilateral cataract extraction Hx of eye surgery Hx of tonsillectomy Occupational Therapy Inpatient Evaluation/Re-Eval M2 OT-IP Current Condition Start: 10/11/23 17:19 Freq: Status: Active Protocol: Document 10/11/23 17:24 [facility] (Rec: 10/11/23 17:33 [facility] [id number]) Occupational Therapy Current Condition Current Condition Evaluation Date 10/11/23 Treatment Diagnosis S/P L HERO anterior approach Diagnosis Onset Date 10/11/23 Post Operative Precautions Anterior Hip Precautions No Hip Extension,No Hip External Rotation M3 OT- IP Subjective and Pain Start: 10/11/23 17:19 Freq: Status: Active Protocol: Document 10/11/23 17:24 [facility] (Rec: 10/11/23 17:33 [facility] [id number]) OT- Subjective Occupational Therapy Visit Type Type Initial Evaluation Visit Start Time 16:55 Visit Stop Time 17:20 Occupational Therapy Visit Comments Patient Comments Pt wanting to get dressed. Nursing calling the surgeon to see if pt could be discharged . Patient/Caregiver Goals To go home and play golf again . OT Pain Assessment Pain When Pain Assessed During Mobility Pain Present Pain Present Pain Reported M4 OT- IP ADL's Start: 10/11/23 17:19 Freq: Status: Active Protocol: Document 10/11/23 17:24 [facility] (Rec: 10/11/23 17:33 [facility] [id number]) OT PNS-Yckw-Gkhyyie General Evaluation Self-Feeding Ability Independent OT ADL-Grooming Comments OT Grooming Comments Not performed. OT ADL-Oral Care Comments Oral Care Comments Not performed. OT ADL-Dressing General Eval Lower Body Dressing Ability Maximum Assistance Areas Needing Assistance Socks Comments OT Dressing Comments Able to have pt practice use of fuel injection servicer and sock aid for LB dressing needs. Pt states will order a sock aid. OT ADL-Toileting Comments OT Toileting Comments Educated pt to be mindful of his left hip positioning needs while wiping. OT ADL-Bathing Comments OT Bathing Comments No performed. M5 OT- IP IADL's Start: 10/11/23 17:19 Freq: Status: Active Protocol: Document 10/11/23 17:24 [facility] (Rec: 10/11/23 17:33 [facility] [id number]) OT-Instrumental Activities of Daily Living Deficits IADL Deficits Identified Deficits Home Safety Awareness Awareness of Need for Assistance at Home Good Awareness Ability to Problem Solve Emergency Able to Problem Solve Situations Meal Preparation Meal Preparation Caregiver Provides Assist Product Evangelist Product Evangelist Caregiver Provides Assist M6 OT- IP Functional Cognition Start: 10/11/23 17:19 Freq: Status: Active Protocol: Document 10/11/23 17:24 [facility] (Rec: 10/11/23 17:33 [facility] [id number]) Cognitive Factors Limiting Selfcare Function Cognitive Ability Level of Alertness Alert Patient Orientation Name,Age,Birthday,Month,Date, Year,Day of Week,Place, Situation Attention Span Ability Capable of Focused Attention, Capable of Sustained Attention Cognitive Comments Cognitive Assessment Comments Intact. M7 OT- IP Mobility and Balance Start: 10/11/23 17:19 Freq: Status: Active Protocol: Document 10/11/23 17:24 [facility] (Rec: 10/11/23 17:33 [facility] [id number]) OT-Transfer Assessment Comments Mobility Comments PT already completed training with pt's and able to safely assist for all mobility needs including the steps. OT- Balance Assessment Sitting Balance and Reactions Static Sitting Balance Ability Normal Dynamic Sitting Balance Ability Good Standing Balance and Reactions Static Standing Balance Ability Good M8 OT- IP Objective Assessments Start: 10/11/23 17:19 Freq: Status: Active Protocol: Document 10/11/23 17:24 [facility] (Rec: 10/11/23 17:33 [facility] [id number]) OT Gross Range of Motion Upper Extremity Range of Motion Assessment Within Functional Limits OT Strength Upper Extremity Strength Assessment Within Functional Limits M9 OT- IP Assessment and Plan Start: 10/11/23 17:19 Freq: Status: Active Protocol: Document 10/11/23 17:24 [facility] (Rec: 10/11/23 17:33 [facility] [id number]) OT Summary Assessment and Plan Potential Rehabilitation Potential Excellent Analytic Complexity at Evaluation Low Summary OT Impairments Pain,Strength,Balance, Functional Mobility,Dressing, Toileting,Bathing,Toilet Transfers,Shower Transfers Progress Towards Goals Progressing Toward Goals Assessment Summary Pt low complexity and doing well and pt's able to do caregiver training with pt;s for all mobility needs. OT able to go over use of sock aid with pt and to be mindful of his left hip positioning during ADl needs. Pt to go home with his when medically stable and do outpt PT. Goals Dressing Goal Independent,Long Handled Shoe Horn,Benefits Coordinator,Sock Aid Toileting Goal Independent Bathing Goal Standby Assistance Toilet Transfer Goal Independent Shower Transfer Goal Independent Days to Meet Goals 4 Frequency of Treatment Frequency Of Treatment Once a Day Treatment Plan OT Treatment Plan ADL Training,Functional Mobility,Patient/Family Education,Discharge Planning Discharge Recommendations OT Discharge Recommendations Home with Assistance, Outpatient PT Home Equipment Needs Sock aid Transportation Needs at Discharge Private Vehicle
== END 2023-10-11 19:30 | disposition home or self-care (01) ==
LOC: OR 07:19 → AC 07:23
PROVIDERS: PCP Student in an Organized Health Care Education/Training Program; Referring Provider Student in an Organized Health Care Education/Training Program; Visit Provider Orthopaedic Surgery Adult Reconstructive Orthopaedic Surgery
PROC: (CPT 27130; principal; 2023-10-11 08:45)
DX: M16.12 Unilateral primary osteoarthritis, left hip (principal)
CPT/HCPCS: 27130; 36415; 73502; 73503; 76000; 82962; 85014; 85018; 86850; 86900; 86901; 97162; 97165; 97530; 97535; C1776; J0690; J2250; J2405; J2704; J3010